=== PATIENT | female | born 1995 | race Caucasian/White ===

== ENCOUNTER 2022-02-19 16:45 | Emergency (ER) | payer MEDICAID, OTHER ==
[~2022-02-19] VITALS: Ht 149.9 cm; Wt 42.7 kg
[2022-02-19 22:20] LABS: Urine Bacteria MOD /hpf (None Seen); Urine Blood Negative /uL (Negative); Urine Mucus FEW (None Seen); Urine WBC 1 /hpf (0 - 5)
[2022-02-19 22:30] VITALS: BP 124/68
[2022-02-19] MEDS ORDERED: ABAC1TAB3 PO (22:31)
== END 2022-02-19 22:35 | disposition home or self-care (01) ==
LOC: ER 16:45
DX: Z76.0 Encounter for issue of repeat prescription (principal); Z32.02 Encounter for pregnancy test, result negative; Z21 Asymptomatic human immunodeficiency virus [HIV] infection status
CPT/HCPCS: 81001; 81025